=== PATIENT | male | born 1985 ===

== ENCOUNTER 2018-06-14 10:59 | Emergency (ER) | payer OTHER ==
[~2018-06-14] VITALS: Ht 182.9 cm; Wt 117.9 kg
== END 2018-06-14 13:09 | disposition home or self-care (01) ==
LOC: ER 10:59
DX: T59.891A Toxic effect of other specified gases, fumes and vapors, accidental (unintentional), initial encounter (principal); R05 Cough; Y92.69 Other specified industrial and construction area as the place of occurrence of the external cause

== ENCOUNTER 2018-06-15 09:36 | Emergency (ER) | payer OTHER ==
[~2018-06-15] VITALS: Ht 182.9 cm; Wt 117.9 kg
== END 2018-06-15 14:44 | disposition home or self-care (01) ==
LOC: ER 09:36
DX: T59.891A Toxic effect of other specified gases, fumes and vapors, accidental (unintentional), initial encounter (principal); J68.3 Other acute and subacute respiratory conditions due to chemicals, gases, fumes and vapors; Y92.69 Other specified industrial and construction area as the place of occurrence of the external cause